=== PATIENT | male | born 1945 | race Caucasian/White ===

== ENCOUNTER → 2022-12-04 | Outpatient (CLI) | payer MEDICARE | LOC: M PLARAD 13:34 | PROVIDERS: ATTEND Surgery | DX: C16.0 Malignant neoplasm of cardia (principal); J32.4 Chronic pansinusitis; I65.23 Occlusion and stenosis of bilateral carotid arteries; I70.0 Atherosclerosis of aorta; I25.10 Atherosclerotic heart disease of native coronary artery without angina pectoris; K44.9 Diaphragmatic hernia without obstruction or gangrene | CPT/HCPCS: 78815; A9552 ==

== ENCOUNTER → 2023-03-10 | Outpatient (CLI) | payer MEDICARE | LOC: M PLARAD 13:01 | PROVIDERS: ATTEND Nurse Practitioner Acute Care | DX: C16.0 Malignant neoplasm of cardia (principal) | CPT/HCPCS: 78815; A9552 ==

== ENCOUNTER 2025-07-05 21:03 | Emergency (ER) | payer MEDICARE, SELFPAY ==
[~2025-07-05] VITALS: Ht 182.9 cm; Wt 83.2 kg
[2025-07-06 05:54] LABS: BASO # 0.1 10^3/uL (0.0-0.2); BASO % 0.8 % (0.0-1.0); EOS # 0.8 10^3/uL (0.0-0.5); EOS % 9.9 % (0.0-3.0); LYMPH # 1.0 10^3/uL (1.5-5.0); LYMPH % 12.5 % (24.0-44.0); MONO # 0.7 10^3/uL (0.0-0.8); MONO % 9.6 % (2.0-8.0); NEUTROPHILS # 5.1 10^3/uL (1.5-8.5); NEUTROPHILS % 66.7 % (36.0-66.0); PLATELET COUNT, AUTOMATED 189 10^3/uL (150-450)
[2025-07-06 06:12] LABS: CK-MB VALUE MASS 3.5 NG/ML (<3.6)
[2025-07-06] MEDS: LIDOCAINE W/EPINEPHrine 1% 20 ML VIAL SC ONE (06:20)
[2025-07-06 06:35] LABS: ALT/SGPT 37.0 U/L (7.0-40); AST/SGOT 41.0 U/L (<34); CALCIUM LEVEL 9.3 MG/DL (8.3-10.6); CARBON DIOXIDE LEVEL 26.0 MMOL/L (20-31); CHLORIDE LEVEL 108.0 MMOL/L (98-107); CPK CREATINE PHOSPHOKINASE 97.0 U/L (46-171); CREATININE FOR GFR 1.25 MG/DL (0.70-1.30); GLOMERULAR FILTRATION RATE 58.9 (>42); MB/CK RELATIVE INDEX 3.6 (< OR =4); POTASSIUM SERUM 5.4 MMOL/L (3.5-5.1); SODIUM LEVEL 143.0 MMOL/L (136-145)
[2025-07-06 07:30] VITALS: BP 146/71; TEMP 96.8; O2SAT 96
== END 2025-07-06 07:51 | disposition home or self-care (01) ==
LOC: M ED 21:03
DX: S01.01XA Laceration without foreign body of scalp, initial encounter (principal); R55 Syncope and collapse; W01.198A Fall on same level from slipping, tripping and stumbling with subsequent striking against other object, initial encounter; M51.369 Other intervertebral disc degeneration, lumbar region without mention of lumbar back pain or lower extremity pain; I10 Essential (primary) hypertension; J45.909 Unspecified asthma, uncomplicated; E11.9 Type 2 diabetes mellitus without complications; Z88.6 Allergy status to analgesic agent; Z88.8 Allergy status to other drugs, medicaments and biological substances; Y92.008 Other place in unspecified non-institutional (private) residence as the place of occurrence of the external cause; Y93.89 Activity, other specified; Y99.9 Unspecified external cause status

== ENCOUNTER → 2025-08-30 | Outpatient (CLI) | payer MEDICARE ==
[~2025-08-30] MED LIST: ISOVUE-370 76% 100 ML VIAL ONE
== END ==
LOC: M PLAIMG 14:00
PROVIDERS: ATTEND Nurse Practitioner
DX: C15.9 Malignant neoplasm of esophagus, unspecified (principal); J43.9 Emphysema, unspecified; J90 Pleural effusion, not elsewhere classified; N28.1 Cyst of kidney, acquired; R91.8 Other nonspecific abnormal finding of lung field
CPT/HCPCS: 71260; 74177; Q9967